=== PATIENT | male | born 1940 | race Two or more races ===

== ENCOUNTER 2019-04-26 10:33 | Outpatient (CLI) | payer OTHER ==
[~2019-04-26 10:33] MED LIST: ALLOPURINOL PO; ASA325 MG PO; HYZAAR 50-12.1 UDTAB; HYZAAR 50/12.51 TAB PO; LIPITOR20 MG; NORVASC10 MG; NORVASC10 MG PO; SYNTHROID100 MCG PO; TAMS0.4C PO; ULTRACET PO; [UNRECOGNIZED DRUG - OTHER] IV
== END 2019-04-26 17:00 | disposition home or self-care (01) ==
LOC: MRI 10:33
DX: F09 Unspecified mental disorder due to known physiological condition (principal); F03.90 Unspecified dementia, unspecified severity, without behavioral disturbance, psychotic disturbance, mood disturbance, and anxiety
CPT/HCPCS: 70551

== ENCOUNTER 2021-10-01 12:14 | Outpatient (CLI) | payer OTHER | END 2021-10-01 12:27 | disposition home or self-care (01) | LOC: MRI 12:14 | PROVIDERS: ATTEND Neuromusculoskeletal Medicine & OMM | DX: F03.90 Unspecified dementia, unspecified severity, without behavioral disturbance, psychotic disturbance, mood disturbance, and anxiety (principal); F09 Unspecified mental disorder due to known physiological condition | CPT/HCPCS: 70551 ==

== ENCOUNTER 2022-06-04 08:01 | Outpatient (CLI) | payer OTHER | END 2022-06-04 14:56 | disposition home or self-care (01) | LOC: MRI 08:01 | PROVIDERS: ATTEND Internal Medicine | DX: M15.9 Polyosteoarthritis, unspecified (principal); M25.561 Pain in right knee | CPT/HCPCS: 73721 ==

== ENCOUNTER 2023-02-10 08:22 | Outpatient (CLI) | payer OTHER | END 2023-02-10 08:27 | disposition home or self-care (01) | LOC: SONOGRAMA 08:22 | PROVIDERS: ATTEND Specialist/Technologist, Other Nephrology | DX: R10.9 Unspecified abdominal pain (principal); N18.30 Chronic kidney disease, stage 3 unspecified; R31.9 Hematuria, unspecified ==

== ENCOUNTER 2023-06-20 09:43 | Emergency (ER) | payer OTHER ==
[~2023-06-20] VITALS: Ht 165.1 cm; Wt 77.1 kg
== END 2023-06-20 13:26 | disposition home or self-care (01) ==
LOC: ER
DX: M25.562 Pain in left knee (principal)

== ENCOUNTER 2023-06-20 14:57 | Outpatient (CLI) | payer OTHER | END 2023-06-20 15:10 | disposition home or self-care (01) | LOC: MRI 14:57 | PROVIDERS: ATTEND Orthopaedic Surgery | DX: M25.561 Pain in right knee (principal); M25.562 Pain in left knee; S83.200A Bucket-handle tear of unspecified meniscus, current injury, right knee, initial encounter; S83.201A Bucket-handle tear of unspecified meniscus, current injury, left knee, initial encounter | CPT/HCPCS: 73721 ==

== ENCOUNTER 2023-09-05 09:41 | Outpatient (CLI) | payer OTHER | END 2023-09-05 09:42 | disposition home or self-care (01) | LOC: NUCLEAR 09:41 | PROVIDERS: ATTEND Internal Medicine | DX: I70.213 Atherosclerosis of native arteries of extremities with intermittent claudication, bilateral legs (principal) ==

== ENCOUNTER 2023-09-15 07:24 | Outpatient (CLI) | payer OTHER | END 2023-09-15 07:25 | disposition home or self-care (01) | LOC: NUCLEAR 07:24 | PROVIDERS: ATTEND Internal Medicine | DX: I20.9 Angina pectoris, unspecified (principal); I11.9 Hypertensive heart disease without heart failure | CPT/HCPCS: 78452; 93017; A9500; J0153 ==

== ENCOUNTER 2024-05-08 00:47 | Inpatient (IN) | payer OTHER ==
[~2024-05-08] VITALS: Ht 165.1 cm; Wt 68.0 kg
[~2024-05-08 00:47] MED LIST changes: +CLOPIDOGREL BIS75 MG PO; +FINASTERIDE5 MG PO; +INTEGRA PLUS C1 EACH PO; +LEVOTHYROXINE112 MCG PO; +LIPITOR40 M1 PO; +PHOSLO667 M1 PO; +PROTEINEX-18 LI30 ML PO; +SYNTHROID112 MCG PO; +TRILIPIX45 MG PO; +ULORIC40 MG PO
[2024-05-08 04:41] LABS: HEMATOCRIT 29.5 % (39.0-48.0); HEMOGLOBIN 9.9 g/dL (13-16.00); MEAN CELL VOLUME 76.6 fL (80.0-100.00); MEAN CORPUSCULAR HEMOGLOBIN 25.6 pg (27.00-32.0); MEAN CORPUSCULAR HGB CONC 33.5 g/dl (32.0-36.0); PLATELET COUNT 183 K/uL (150-450); RED BLOOD COUNT 3.85 M/uL (4.00-6.00); RED CELL DISTRIBUTION WIDTH 14.7 % (11.5-14.5)
[2024-05-08 05:06] LABS: ALBUMIN 3.3 gm/dL (3.4-5.0); BILIRUBIN TOTAL 0.43 mg/dL (0.3-1.2); CALCIUM 9.2 mg/dL (8.5-10.1); GFR 11.51; GLOBULINA 3.5 G/DL (2.4-3.5); POTASSIUM 3.73 mEq/L (3.5-5.1); TOTAL PROTEIN 6.8 gm/dL (6.4-8.2)
[2024-05-08 05:41] LABS: CREATININE SERUM 4.87 mg/dL (0.70-1.30)
[2024-05-08 06:36] LABS: URINE APPEARANCE Cloudy; URINE BILIRRUBIN Small (NEGATIVE); URINE BLOOD Large; URINE COLOR Red; URINE KETONE Negative (NEGATIVE); URINE LEUKOCYTE Moderate; URINE NITRATE Positive; URINE PROTEIN >=1000 (NEGATIVE); URINE UROBILINOGEN 0.2 E.U./dl
[2024-05-08 07:22] LABS: URINE GLUCOSE 100 MG/DL (NEGATIVE)
[2024-05-08 07:23] LABS: URINE RBC LOADED /HPF; URINE WBC 0-2 /hpf
[2024-05-08 07:24] LABS: URINE BACTERIA SOME; URINE EPITHELIAL CELLS 0-4 /HPF; URINE MUCUS NEGATIVE
[2024-05-08] MEDS ORDERED: CIPROFLOXACIN IN 5 % DEXTROSE 400 MG/200 ML PIGGYBAG IV STA (07:42)
[2024-05-08] MEDS ORDERED: ACETAMINOPHEN 500 MG GEL..CAP PO STA (10:42)
[2024-05-08] MEDS ORDERED: MEPERIDINE HCL/PF 50 MG/ML VIAL IM ONE (10:45)
[2024-05-08] MEDS ORDERED: LORazepam 2 MG/ML VIAL IM STA (12:03)
[2024-05-08] MEDS ORDERED: QUETIAPINE FUMARATE 25 MG TABLET PO SCH (18:20)
[2024-05-08] MEDS ORDERED: DEXTROSE 50 % IN WATER 0.5 G/ML DISP.SYRIN IV PRN (18:30)
[2024-05-08] MEDS ORDERED: INSULIN LISPRO 1,000 UNIT/10 ML UNITS SUBCUTANEO PRN (18:30)
[2024-05-08] MEDS ORDERED: LORazepam 1 MG TABLET PO PRN (18:30)
[2024-05-08] MEDS ORDERED: IRON FUM,PS/FOLIC/BCOMP,C NO.9 1 CAP CAPSULE PO SCH (19:01)
[2024-05-08] MEDS ORDERED: HEPARIN SODIUM,PORCINE 1,000 UNITS/ML VIAL IV SCH (21:30)
[2024-05-08] MEDS ORDERED: HEPARIN SODIUM,PORCINE 1,000 UNITS/ML VIAL SPEPROC ONE (21:30)
[2024-05-08 23:32] VITALS: BP 105/66
[2024-05-08 23:40] VITALS: BP 105/60; O2SAT 98
[2024-05-09 08:42] LABS: HEMATOCRIT 28.6 % (39.0-48.0); HEMOGLOBIN 9.5 g/dL (13-16.00); MEAN CELL VOLUME 78.5 fL (80.0-100.00); MEAN CORPUSCULAR HEMOGLOBIN 26.3 pg (27.00-32.0); MEAN CORPUSCULAR HGB CONC 33.4 g/dl (32.0-36.0); PLATELET COUNT 185 K/uL (150-450); RED BLOOD COUNT 3.64 M/uL (4.00-6.00); RED CELL DISTRIBUTION WIDTH 14.7 % (11.5-14.5)
[2024-05-09] MEDS ORDERED: TAMSULOSIN HCL 0.4 MG CAP PO SCH (09:00)
[2024-05-09] MEDS ORDERED: FINASTERIDE 5 MG TABLET PO SCH (09:00)
[2024-05-09] MEDS ORDERED: PANTOPRAZOLE SODIUM 40 MG/VIAL VIAL IV SCH (09:00)
[2024-05-09] MEDS ORDERED: Calcium Acetate 667 MG CAP PO SCH (09:00)
[2024-05-09 09:28] VITALS: BP 122/67; O2SAT 98
[2024-05-09 09:55] LABS: ALBUMIN 3.2 gm/dL (3.4-5.0); BILIRUBIN TOTAL 0.47 mg/dL (0.3-1.2); CALCIUM 9.1 mg/dL (8.5-10.1); GFR 9.94; GLOBULINA 2.8 G/DL (2.4-3.5); MAGNESIUM 2.3 mg/dL (1.8-2.4); PHOSPHOROUS 4.1 mg/dL (2.5-4.9); POTASSIUM 3.57 mEq/L (3.5-5.1); URIC ACID 4.9 mg/dL (3.5-8.5)
[2024-05-09] MEDS ORDERED: EPOETIN ALFA-EPBX 10,000 UNIT/ML VIAL (Retacrit) SUBCUTANEO NR (11:15)
[2024-05-09 11:28] LABS: CREATININE SERUM 5.53 mg/dL (0.70-1.30)
[2024-05-09] MEDS ORDERED: IRON/V.C/V.B12/FOLIC A/VIT. E 1 CAPL CAPLET PO SCH (12:00)
[2024-05-09] MEDS ORDERED: VITAMIN B COMPLEX/LYSINE 1 ML ML PO SCH (17:00)
[2024-05-09] MEDS ORDERED: HEPARIN SODIUM,PORCINE 5,000 UNITS/ML VIAL IV NR (17:45)
[2024-05-09 18:53] VITALS: BP 126/60
[2024-05-09 21:40] LABS: HEMATOCRIT 32.2 % (39.0-48.0); HEMOGLOBIN 10.7 g/dL (13-16.00); MEAN CELL VOLUME 79.4 fL (80.0-100.00); MEAN CORPUSCULAR HEMOGLOBIN 26.3 pg (27.00-32.0); MEAN CORPUSCULAR HGB CONC 33.1 g/dl (32.0-36.0); RED BLOOD COUNT 4.06 M/uL (4.00-6.00); RED CELL DISTRIBUTION WIDTH 14.7 % (11.5-14.5)
[2024-05-09 21:46] LABS: PLATELET COUNT 121 K/uL (150-450)
[2024-05-10 01:03] VITALS: BP 118/66
[2024-05-10 09:24] VITALS: BP 155/83; O2SAT 97
[2024-05-10] MEDS ORDERED: RESTORIL15 MG PO (14:20)
[2024-05-10] MEDS ORDERED: QUETIAPINE FUMA25 MG PO (14:20)
[2024-05-10] MEDS ORDERED: TEMAZEPAM 15 MG CAPSULE PO PRN (21:00)
[2024-05-11] MEDS ORDERED: EPOETIN ALFA-EPBX 10,000 UNIT/ML VIAL (Retacrit) SUBCUTANEO SCH (09:00)
== END 2024-05-10 17:15 | disposition home or self-care (01) | DRG 698 ==
LOC: ER 00:49 → MEDJ 18:54 → SEC-K 18:54 → MEDJ 19:30 → MEDI 05-09 15:42 → MEDJ 05-09 15:50
PROVIDERS: ADMIT Internal Medicine; ATTEND Internal Medicine
PROC: BW21ZZZ Computerized Tomography (CT Scan) of Abdomen and Pelvis (ICD-10-PCS; principal; 2024-05-09)
PROC: 0T2BX0Z Change Drainage Device in Bladder, External Approach (ICD-10-PCS; 2024-05-09)
PROC: 3C1ZX8Z Irrigation of Indwelling Device using Irrigating Substance, External Approach (ICD-10-PCS; 2024-05-09)
PROC: 30233N1 Transfusion of Nonautologous Red Blood Cells into Peripheral Vein, Percutaneous Approach (ICD-10-PCS; 2024-05-09)
PROC: 5A1D70Z Performance of Urinary Filtration, Intermittent, Less than 6 Hours Per Day (ICD-10-PCS; 2024-05-09)
DX: T83.091A Other mechanical complication of indwelling urethral catheter, initial encounter (principal); N18.6 End stage renal disease; I12.0 Hypertensive chronic kidney disease with stage 5 chronic kidney disease or end stage renal disease; R31.0 Gross hematuria; D64.89 Other specified anemias; D63.1 Anemia in chronic kidney disease; E11.22 Type 2 diabetes mellitus with diabetic chronic kidney disease; Z99.2 Dependence on renal dialysis; G30.8 Other Alzheimer's disease; F02.80 Dementia in other diseases classified elsewhere, unspecified severity, without behavioral disturbance, psychotic disturbance, mood disturbance, and anxiety; E03.9 Hypothyroidism, unspecified; E78.5 Hyperlipidemia, unspecified; Z90.5 Acquired absence of kidney

== ENCOUNTER 2024-06-24 09:38 | Emergency (ER) | payer OTHER ==
[~2024-06-24] VITALS: Ht 165.1 cm; Wt 74.8 kg
[~2024-06-24 09:38] MED LIST changes: +QUETIAPINE FUMA25 MG PO; +RESTORIL15 MG PO
== END 2024-06-24 11:43 | disposition home or self-care (01) ==
LOC: ER 09:38
DX: T83.9XXA Unspecified complication of genitourinary prosthetic device, implant and graft, initial encounter (principal); T83.091A Other mechanical complication of indwelling urethral catheter, initial encounter

== ENCOUNTER 2024-07-14 11:54 | Emergency (ER) | payer OTHER ==
[~2024-07-14] VITALS: Ht 167.6 cm; Wt 77.1 kg
[2024-07-14 12:25] VITALS: BP 130/76; O2SAT 96
[2024-07-14 14:21] LABS: HEMATOCRIT 39.8 % (39.0-48.0); HEMOGLOBIN 12.7 g/dL (13-16.00); MEAN CELL VOLUME 85.1 fL (80.0-100.00); MEAN CORPUSCULAR HEMOGLOBIN 27.1 pg (27.00-32.0); MEAN CORPUSCULAR HGB CONC 31.9 g/dl (32.0-36.0); PLATELET COUNT 153 K/uL (150-450); RED BLOOD COUNT 4.67 M/uL (4.00-6.00); RED CELL DISTRIBUTION WIDTH 17.2 % (11.5-14.5)
[2024-07-14 14:58] LABS: ALBUMIN 3.7 gm/dL (3.4-5.0); BILIRUBIN TOTAL 0.24 mg/dL (0.3-1.2); CALCIUM 9.9 mg/dL (8.5-10.1); GFR 10.46; GLOBULINA 3.5 G/DL (2.4-3.5); POTASSIUM 5.35 mEq/L (3.5-5.1); TOTAL PROTEIN 7.2 gm/dL (6.4-8.2)
[2024-07-14 15:20] LABS: CREATININE SERUM 5.29 mg/dL (0.70-1.30)
[2024-07-14] MEDS ORDERED: 0.9 % SODIUM CHLORIDE 1,000 ML IV ONE (15:30)
[2024-07-14] MEDS ORDERED: LORazepam 1 MG TABLET PO ONE (16:30)
[2024-07-14] MEDS ORDERED: TAMSULOSIN HCL 0.4 MG CAP PO ONE ×2 (17:28→17:30)
[2024-07-14 18:26] LABS: PH,URINE 7.5; URINE BILIRRUBIN SMALL (NEGATIVE); URINE BLOOD LARGE; URINE GLUCOSE NEGATIVE (NEGATIVE); URINE KETONE NEGATIVE (NEGATIVE); URINE LEUKOCYTE MODERATE; URINE NITRATE POSITIVE; URINE UROBILINOGEN 0.2 E.U./dl
[2024-07-14 18:57] LABS: URINE APPEARANCE TURBID; URINE COLOR RED; URINE PROTEIN >=300 (NEGATIVE)
[2024-07-14 18:58] LABS: URINE RBC LOADED /HPF
[2024-07-14 19:03] LABS: URINE WBC 13-20 /hpf
[2024-07-14 19:04] LABS: URINE BACTERIA MANY; URINE CRYSTALS NEGATIVE /HPF; URINE EPITHELIAL CELLS 0-4 /HPF; URINE MUCUS SCANT
[2024-07-14] MEDS ORDERED: BACTRIM 400-801 EACH PO (19:34)
== END 2024-07-14 19:37 | disposition home or self-care (01) ==
LOC: ER 11:56
PROVIDERS: General Practice
DX: N39.0 Urinary tract infection, site not specified (principal)